=== PATIENT | female | born 1965 | race Caucasian/White ===

== ENCOUNTER 2017-05-26 14:58 | Emergency (ER) | payer OTHER, MEDICAID ==
[2017-05-26 18:27] VITALS: BP 118/83
== END 2017-05-26 18:27 | disposition home or self-care (01) ==
LOC: ED 14:58
DX: S01.81XD Laceration without foreign body of other part of head, subsequent encounter (principal); I10 Essential (primary) hypertension; X58.XXXD Exposure to other specified factors, subsequent encounter; Y92.89 Other specified places as the place of occurrence of the external cause; Y99.8 Other external cause status

== ENCOUNTER 2017-09-30 08:02 | Inpatient (IN) | payer OTHER, MEDICAID ==
[~2017-09-30] VITALS: Ht 147.3 cm; Wt 55.0 kg
[2017-09-30] MEDS ORDERED: ASPIR 8181 MG PO (08:21)
[2017-09-30] MEDS ORDERED: BENEFIBER1 EAC1 PO (08:22)
[2017-09-30] MEDS ORDERED: KLO0.5 PO (08:22)
[2017-09-30] MEDS ORDERED: COLACE100 MG PO (08:22)
[2017-09-30] MEDS ORDERED: ZESTRIL5 MG PO (08:23)
[2017-09-30] MEDS ORDERED: GOOD SENSE OMEP20 MG PO (08:23)
[2017-09-30] MEDS ORDERED: RISPERDAL0.5 MG PO (08:23)
[2017-09-30] MEDS ORDERED: TRAZODONE50 M1 PO (08:24)
[2017-09-30] MEDS ORDERED: THERA-M W/MINER1 TAB PO (08:24)
[2017-09-30] MEDS ORDERED: KEN025C TOP (08:25)
[2017-09-30] MEDS ORDERED: BETAMETHASONE D0.051 TOP (08:26)
[2017-09-30 08:56] LABS: BASOPHIL % 0.2 % (0-2); PLATELET COUNT 215 x10^3mcL (130-400); RED CELL DISTRIBUTION WIDTH 13.9 % (11.5-14.5)
[2017-09-30 09:06] LABS: CALCIUM 8.8 mg/dL (8.5-10.1); CARBON DIOXIDE 25.7 mmol/L (21-32); CREATININE SERUM 1.5 mg/dL (0.6-1.0); POTASSIUM SERUM 4.3 mmol/L (3.5-5.1)
[2017-09-30 09:18] LABS: ALBUMIN 3.4 g/dL (3.4-5.0); BILIRUBIN TOTAL 0.2 mg/dL (0.20-1.00); TOTAL PROTEIN, SERUM 7.9 g/dL (6.4-8.2)
[2017-09-30 11:19] LABS: MAGNESIUM 2.3 mg/dL (1.8-2.4); PHOSPHOROUS 3.8 mg/dL (2.5-4.9)
[2017-09-30 11:24] LABS: T3 TOTAL 1.21 ng/mL
[2017-09-30 11:31] LABS: FREE T4 1.11 ng/dL (0.76-1.46); FREE THYROXINE INDEX 4.1 ug/dL (1.4-4.5); T4(THYROXINE) 11.7 ug/dL (4.7-13.3)
[2017-09-30 14:05] VITALS: BP 157/89
[2017-09-30 21:00] VITALS: BP 122/80
[2017-10-01 05:45] VITALS: BP 153/82
[2017-10-01 07:19] LABS: CALCIUM 8.7 mg/dL (8.5-10.1); CHLORIDE SERUM 107 mmol/L (98-107); CREATININE SERUM 0.9 mg/dL (0.6-1.0); GFR1 > 60 mL/min; GLUCOSE SERUM 87 mg/dL (74-106); POTASSIUM SERUM 4.2 mmol/L (3.5-5.1); SODIUM SERUM 139 mmol/L (136-145)
[2017-10-01 07:33] LABS: BASOPHIL % 0.3 % (0-2); PLATELET COUNT 178 x10^3mcL (130-400); RED CELL DISTRIBUTION WIDTH 13.8 % (11.5-14.5)
[2017-10-01 08:48] VITALS: BP 148/85
[2017-10-01 10:07] VITALS: BP 177/90
[2017-10-01 11:48] LABS: microscopic required? YES; urine erythrocyte NEGATIVE (NEGATIVE)
[2017-10-01] MEDS ORDERED: LEVAQUIN750 MG PO (15:05)
[2017-10-01] MEDS ORDERED: NORCO1 TA2 PO (15:29)
[2017-10-01 16:20] VITALS: BP 144/96
[2017-10-01 16:46] VITALS: BP 144/96
== END 2017-10-01 17:07 | DRG 312 ==
LOC: ED 08:02 → DU 10:17
PROVIDERS: Emergency Medicine; ADMIT Family Medicine Sports Medicine
DX: R55 Syncope and collapse (principal); N17.0 Acute kidney failure with tubular necrosis; G40.909 Epilepsy, unspecified, not intractable, without status epilepticus; K21.9 Gastro-esophageal reflux disease without esophagitis; L40.0 Psoriasis vulgaris; E86.0 Dehydration; F41.8 Other specified anxiety disorders; I10 Essential (primary) hypertension; H91.93 Unspecified hearing loss, bilateral; G80.9 Cerebral palsy, unspecified; G47.00 Insomnia, unspecified; Z74.01 Bed confinement status; Z68.25 Body mass index [BMI] 25.0-25.9, adult
CPT/HCPCS: 36600; 83880; 84439; J0696; J1630; J2060; J7030; Q0092

== ENCOUNTER 2018-01-15 12:26 | Emergency (ER) | payer OTHER, MEDICAID ==
[~2018-01-15] VITALS: Ht 149.9 cm; Wt 53.1 kg
[~2018-01-15 12:26] MED LIST: ASPIR 8181 MG PO; BENEFIBER1 EAC1 PO; BETAMETHASONE D0.051 TOP; COLACE100 MG PO; GOOD SENSE OMEP20 MG PO; KEN025C TOP; KLO0.5 PO; LEVAQUIN750 MG PO; NORCO1 TA2 PO; RISPERDAL0.5 MG PO; THERA-M W/MINER1 TAB PO; TRAZODONE50 M1 PO; ZESTRIL5 MG PO
[2018-01-15 12:27] VITALS: Ht 149.9 cm; Wt 53.1 kg
[2018-01-15 16:48] VITALS: BP 139/95
== END 2018-01-15 16:48 | disposition home or self-care (01) ==
LOC: ED 12:26
DX: S01.81XA Laceration without foreign body of other part of head, initial encounter (principal); K21.9 Gastro-esophageal reflux disease without esophagitis; I10 Essential (primary) hypertension; G80.9 Cerebral palsy, unspecified; W05.0XXA Fall from non-moving wheelchair, initial encounter; Y93.89 Activity, other specified; Y92.89 Other specified places as the place of occurrence of the external cause; Y99.8 Other external cause status
CPT/HCPCS: J2001

== ENCOUNTER 2018-01-17 10:02 | Emergency (ER) | payer OTHER, MEDICAID ==
[~2018-01-17] VITALS: Ht 149.9 cm; Wt 53.1 kg
[2018-01-17 10:15] VITALS: Ht 149.9 cm; Wt 53.1 kg
[2018-01-17 10:48] VITALS: BP 141/105
== END 2018-01-17 10:48 | disposition home or self-care (01) ==
LOC: ED 10:02
DX: S02.2XXD Fracture of nasal bones, subsequent encounter for fracture with routine healing (principal); S01.81XD Laceration without foreign body of other part of head, subsequent encounter; X58.XXXD Exposure to other specified factors, subsequent encounter

== ENCOUNTER 2018-01-20 09:27 | Emergency (ER) | payer OTHER, MEDICAID ==
[~2018-01-20] VITALS: Ht 157.5 cm; Wt 48.5 kg
[2018-01-20 09:41] VITALS: Ht 157.5 cm; Wt 48.5 kg
[2018-01-20 10:35] VITALS: BP 98/72
== END 2018-01-20 10:35 | disposition home or self-care (01) ==
LOC: ED 09:27
DX: Z48.02 Encounter for removal of sutures (principal); I10 Essential (primary) hypertension; R56.9 Unspecified convulsions; F41.9 Anxiety disorder, unspecified; F29 Unspecified psychosis not due to a substance or known physiological condition; K21.9 Gastro-esophageal reflux disease without esophagitis; L40.0 Psoriasis vulgaris

== ENCOUNTER → 2018-03-01 | Outpatient (CLI) | payer OTHER, MEDICAID | END | disposition home or self-care (01) | LOC: RD 16:08 | DX: M79.641 Pain in right hand (principal); M79.89 Other specified soft tissue disorders ==